=== PATIENT | female | born 2005 | race Caucasian/White ===

== ENCOUNTER 2024-11-02 10:00 | Outpatient (CLI) | payer BC ==
[2024-11-02 10:49] LABS: #Basophils 0.03 10x3/uL (0.0-0.2); #Eosinophils 0.06 10x3/uL (0.0-0.5); #Monocytes 1.23 10x3/uL (0.0-1.1); #Neutrophils 11.87 10x3/uL (1.5-8.4); %Basophils 0.2 % (0.0-2.0); %Eosinophils 0.4 % (0.0-6.0); %Lymphocytes 10.5 % (18.0-47.0); %Monocytes 8.3 % (0.0-10.0); %Neutrophils 80.4 % (40.0-75.0); Hematocrit 38.2 % (34.9-44.5); Mean Corpuscular Hemoglobin 27.7 pg (27.0-33.0); Mean Corpuscular Volume 81.3 fL (81.6-98.3); Mean Platelet Volume 9.2 fL (7.4-10.4); Platelet Count 331 10x3/uL (150-450); White Blood Cell (WBC) Count 14.8 10x3/uL (3.5-10.5)
[2024-11-02 11:06] LABS: BHCG - Serum Negative (NEGATIVE); Pregs Control Background? CLEAR/WHITE (CLR/WHITE); Pregs Control Bar Appear? YES (CONTROL BAR)
[2024-11-02 11:10] LABS: Anion Gap 15 mmol/L (10-20); BUN (Urea Nitrogen) 12 mg/dL (7.0-18.7); Calc. Creatinine Clearance 0 mL/min (70-130); Calcium 10.1 mg/dL (7.8-10.44); Carbon Dioxide 23 mmol/L (22-29); Chloride 105 mmol/L (98-107); Estimated GFR 107; Glucose 83 mg/dL (70-105); Potassium 4.1 mmol/L (3.5-5.1); Sodium 139 mmol/L (136-145)
== END 2024-11-02 10:01 | disposition home or self-care (01) ==
LOC: CSHLAB 10:00
PROVIDERS: ATTEND Surgery
DX: Z01.812 Encounter for preprocedural laboratory examination (principal); L02.215 Cutaneous abscess of perineum
CPT/HCPCS: 80048; 84703; 85025

== ENCOUNTER 2024-11-03 06:57 | Day surgery (SDC) | payer BC ==
[2024-11-02 10:34] VITALS: BMI 34.0
[2024-11-03] MEDS ORDERED: Bupivacaine/Epinephrine 0.25% 30 ML VIAL ONE (08:25)
[2024-11-03] MEDS ORDERED: CEFAZOLIN 2 GM VIAL ONE (08:25)
[2024-11-03] MEDS ORDERED: Lidocaine 1% PF 5 ML VIAL ONE (08:37)
[2024-11-03] MEDS ORDERED: fentaNYL 50 mcg/mL 1 mL Vial ONE ×2 (08:37→09:35)
[2024-11-03] MEDS ORDERED: PROPOFOL 20 ML ONE ×2 (08:37→09:35)
[2024-11-03] MEDS ORDERED: Dexmedetomidine 200 MCG/2 ML VIAL ONE (08:40)
[2024-11-03] MEDS ORDERED: Midazolam HCl 2 mg/2 ml Vial ONE (08:58)
[2024-11-03] MEDS ORDERED: Dexamethasone 20 MG/5 ML VIAL ONE (09:23)
[2024-11-03] MEDS ORDERED: Ondansetron PF 4 MG/2 ML Vial ONE (09:23)
[2024-11-03] MEDS ORDERED: Esmolol 100 MG/10 ML VIAL ONE (09:46)
== END 2024-11-03 11:25 | disposition home or self-care (01) ==
LOC: CSHSDC 06:57
PROVIDERS: ATTEND Surgery
PROC: 0D9QX0Z Drainage of Anus with Drainage Device, External Approach (ICD-10-PCS; principal; 2024-11-03)
DX: K60.30 Anal fistula, unspecified (principal); N90.7 Vulvar cyst; L02.215 Cutaneous abscess of perineum; Z88.0 Allergy status to penicillin; K62.89 Other specified diseases of anus and rectum; F17.200 Nicotine dependence, unspecified, uncomplicated
CPT/HCPCS: J1100; J2250; J2405; J2704; J3010